=== PATIENT | male | born 1980 | race Caucasian/White ===

== ENCOUNTER → 2017-11-25 | Outpatient (CLI) | payer OTHER ==
[~2017-11-25] MED LIST: ATOR10TA24 PO; AZIT500T47 PO; BUPR-147 PO; CEP500 PO; CYC10 PO; CYCL10TA29 PO; DIPH-741 PO; DULO60CA51 PO; ERYOO OD; FLU20 PO; FLUO-177 PO; FLUO-202 PO; HYDR-3078 PO; HYDR-385 PO; IBU600 PO; IBU800 PO; IBUP-1618 PO; KET10 PO; LOR5/325 PO; LOR7.5/325 PO; MEPE50TA29 PO; METH4TAB57 PO; OMEP40CA48 PO; OXYC-865 PO; PER PO; SUCR1TAB85 PO; TAM4 PO; TRAZ-133 PO; ZOLP-350 PO
--- NOTE | 2017-11-25 09:57 | RADIOLOGY IMAGING REPORT ---
FACILITY: [facility] [place] PATIENT NAME: Martin Suárez : 1980 MR: [id number] V: [id number] EXAM DATE: ORDERING PHYSICIAN: MADALYN HERRMANN TECHNOLOGIST: Location: [facility] [place] Patient: Martin Suárez : 1980 Visit/Account:[id number] Date of Sevice: 11/25/2017 GALLBLADDER HISTORY: Right upper quadrant pain for 2 to 3 years COMPARISON: None. FINDINGS: Gallbladder: Unremarkable; no stones or sludge. Liver: Echotexture the liver is heterogeneous with increased echogenicity which can be seen with fatt y infiltration or other infiltrative process. There are some areas of decreased echogenicity adjacen t to the gallbladder which likely represent areas of focal fatty sparing Common duct: Normal, 1.8 mm diameter. Pancreas: Head and body appear grossly unremarkable. Tail is obscured by bowel gas Right kidney: Unremarkable as imaged measuring 11.2 cm in length Upper abdominal aorta and IVC: Patent. Ascites: None visualized. IMPRESSION: Increased echogenicity of the liver which can be seen with fatty infiltration. Gallbladder appeared unremarkable Report Dictated By: Larissa Turpin MD at 11/25/2017 9:51 AM Report E-Signed By: Larissa Turpin MD at 11/25/2017 9:53 AM WSN:[email or web address]
== END ==
LOC: US 01:49
PROVIDERS: ATTEND Surgery
DX: K76.0 Fatty (change of) liver, not elsewhere classified (principal)
CPT/HCPCS: 76705

== ENCOUNTER → 2017-12-02 | Outpatient (CLI) | payer OTHER ==
[~2017-12-02] MED LIST changes: +SINCALIDE 5 MCG VIAL INJ ONE; +WATER STERILE ONE
--- NOTE | 2017-12-02 17:26 | RADIOLOGY IMAGING REPORT ---
FACILITY: [facility] PATIENT NAME: Martin Suárez : 1980 MR: [id number] V: [id number] EXAM DATE: ORDERING PHYSICIAN: MADALYN HERRMANN TECHNOLOGIST: Location: [facility] Patient: Martin Suárez : 1980 Visit/Account:[id number] Date of Sevice: 12/02/2017 EXAMINATION: Nuclear Medicine HIDA Scan 12/02/2017 1:30 PM Right upper quadrant pain TECHNIQUE: 5.7 mCi Tc 99m Mebrofenin was injected intravenously. A series of anterior gamma camera i mages were obtained of the abdomen. The gallbladder does not fill enough for postcholecystokinin gall bladder ejection evaluation to be performed. COMPARISON STUDIES: Ultrasound 11/25/2017 FINDINGS: FINDINGS: Liver uptake and excretion: normal Time to appearance: Bile ducts: Within 6 minutes. Gallbladder: Faintly by 69 minutes. The gallbladder never filled well. Duodenum: By 7 minutes. Duodenal- gastric reflux / extravasation: There is gastric reflux which begins to be visible faintly within 15 minutes IMPRESSION: 1. Gallbladder filled poorly although there is radiotracer within the gallbladder arguing against com plete cystic duct obstruction. Given the poor filling of the gallbladder, gallbladder ejection fracti on could not be assessed. 2. Gastric reflux of radiotracer. Is bile gastritis of clinical concern? Report Dictated By: Farshad Scott MD at 12/02/2017 5:16 PM Report E-Signed By: Farshad Scott MD at 12/02/2017 5:22 PM WSN:[id number]
== END ==
LOC: NUC 03:13
PROVIDERS: ATTEND Surgery
DX: K21.9 Gastro-esophageal reflux disease without esophagitis (principal)
CPT/HCPCS: 78226; A9537; A4216; J2805

== ENCOUNTER 2017-12-09 00:10 | Day surgery (SDC) | payer OTHER ==
--- NOTE | 2017-12-06 17:08 | HISTORY AND PHYSICAL ---
DATE OF ADMISSION: December 09, 2017 CHIEF COMPLAINT Right upper quadrant pain. HISTORY OF PRESENT ILLNESS This is a 36-year-old male with a history of intermittent epigastric and right upper quadrant pain. It occurs after eating buttery foods. It radiates through to the back. He has associated nausea. No change in bowel habits. No urinary complaints. No fever. Pain seems to be increasing in intensity. He is not on any NSAIDS. He underwent an ultrasound examination which was unremarkable. He underwent a HIDA scan with the intention to do a Kinevac study , but the gallbladder did not take up enough nucleotide to perform this study, suggesting an abnormal gallbladder. PAST SURGICAL HISTORY * Microdiskectomy. * Sphincterotomy. ALLERGIES He has no known allergies. CURRENT MEDICATIONS * Atorvastatin. * Chantix. * Prozac. SOCIAL HISTORY He quit smoking. He does not drink alcohol. FAMILY HISTORY History of gallbladder disease. REVIEW OF SYSTEMS No cardiac, pulmonary, liver or kidney disease, diabetes, hypertension, history of deep venous thrombosis. PHYSICAL EXAMINATION GENERAL: A 37-year-old male in no acute distress. LUNGS: Clear. HEART: Regular rhythm. ABDOMEN: Soft, nontender. No palpable masses. IMPRESSION Biliary dyskinesia. PLAN Laparoscopic cholecystectomy with cholangiogram. We discussed the procedure, complications, recovery time, the possibility this may not relieve his symptoms. He seems to understand and wishes to proceed. CHUCHO
[~2017-12-09] VITALS: Ht 188 cm; Wt 124.3 kg
[~2017-12-09 00:10] MED LIST changes: +ATOR20TA65 PO; -SINCALIDE 5 MCG VIAL INJ ONE; +VARE1TAB3 PO; -WATER STERILE ONE
[2017-12-09 06:12] VITALS: BP 132/86
[2017-12-09 06:19] LABS: PLATELET COUNT, AUTOMATED 277 K/uL (150-450)
[2017-12-09] MEDS ORDERED: IOPAMIDOL 61% 100 ML INFUS BTL 100 ML ONE (06:29)
[2017-12-09] MEDS ORDERED: ROPIVACAINE 0.2% 20 ML VIAL ONE (06:29)
[2017-12-09] MEDS ORDERED: PROPOFOL EMUL(*) 10MG/ML 20 ML 20 ML ONE (07:07)
[2017-12-09] MEDS ORDERED: SUGAMMADEX SOD 200 MG/2 ML SDV ONE (07:07)
[2017-12-09] MEDS ORDERED: LIDOCAINE MPF 1% 5 ML VIAL ONE (07:07)
[2017-12-09] MEDS ORDERED: ROCURONIUM BROM 10 MG/ML 10 ML ONE (07:07)
[2017-12-09] MEDS ORDERED: fentaNYL CITR 250 MCG/5 ML AMP ONE (07:07)
[2017-12-09] MEDS ORDERED: DEXAMETHASONE SOD 4 MG/ML VIAL ONE (07:07)
[2017-12-09] MEDS ORDERED: ONDANSETRON 4 MG/2 ML VIAL ONE (07:07)
--- NOTE | 2017-12-09 07:13 | Post Operative Progress Note ---
Post Operative Progress Note Date: Dec 09, 2017 Time: 08:30 Surgeon: jonel Anesthesia: dr rasmussen Pre-Op Diagnosis: cholecystitis Post-Op Diagnosis: same Procedure(s): lap west with MADALYN Wright MD Dec 09, 2017 07:13
[2017-12-09] MEDS ORDERED: HYDR-4309 PO (07:14)
[2017-12-09] MEDS ORDERED: KET10 PO (07:14)
[2017-12-09] MEDS ORDERED: LABETALOL HCL 100 MG/20ML VIAL ONE (07:59)
--- NOTE | 2017-12-09 08:02 | EKG ---
FACILITY: [facility] PATIENT NAME: JOSÉ MIGUEL RAO : [id number] MR: [id number] V: [id number] EXAM DATE: ORDERING PHYSICIAN: JAMI TAVERAS TECHNOLOGIST: Test Reason : Blood Pressure : / mmHG Vent. Rate : 070 BPM Atrial Rate : 070 BPM P-R Int : 164 ms QRS Dur : 086 ms QT Int : 390 ms P-R-T Axes : 025 043 044 degrees QTc Int : 421 ms Normal sinus rhythm Normal ECG No previous ECGs available Confirmed by SAMEER SOMMERS ([id number]) on 12/10/2017 5:52:50 AM Referred By: Confirmed By:SAMEER SOMMERS
--- NOTE | 2017-12-09 08:32 | Short(Outpt) Discharge Summary ---
Discharge Summary Reason for Hosp/Final Diag: (1) Cholecystitis Hospital Course & Plan: lap west with gram Departure Discharge to: Home Discharge Instructions Home Meds Active Scripts Hydrocodone Bit/Acetaminophen (NORCO 5-325 TABLET) 1 Each Tablet, 1 EACH PO Q4H Y for PAIN, #30 TAB Prov:MADALYN HERRMANN MD 12/09/17 Ketorolac Tromethamine (KETOROLAC TROMETHAMINE) 10 Mg Tab, 10 MG PO Q6H, #20 TAB Prov:MADALYN HERRMANN MD 12/09/17 Reported Medications Varenicline Tartrate (CHANTIX) 1 Each Tab.ds.pk, 1 EACH PO BID 12/06/17 Atorvastatin Calcium (ATORVASTATIN CALCIUM) 20 Mg Tablet, 1 TAB PO QDAY, TAB 12/06/17 Fluoxetine Hcl (FLUOXETINE HCL) 20 Mg Capsule, 80 MG PO QDAY, CAPSULE 06/24/16 Discontinued Reported Medications Atorvastatin Calcium (LIPITOR) 10 Mg Tablet, 1 TAB PO QDAY, TAB 08/14/17 Bupropion Hcl (BUPROPION HCL) 75 Mg Tablet, 100 MG PO BID, #10 TAB 06/24/16 Discontinued Scripts Hydrocodone Bit/Acetaminophen (HYDROCODON-ACETAMINOPHEN 5-325) 1 Each Tablet, 1 EACH PO Q4-6H Y for PAIN, #12 TAB Prov:RITO CASEY [facility]- 09/25/17 Ketorolac Tromethamine (KETOROLAC TROMETHAMINE) 10 Mg Tab, 10 MG PO Q6H, #20 TAB Prov:YARELI BUTLER [facility] 08/14/17 Oxycodone Hcl/Acetaminophen (PERCOCET 5-325 MG TABLET) 1 Each Tablet, 1 EACH PO Q4-6H Y for PAIN, #12 TAB Prov:YARELI BUTLER [facility] 08/14/17 Diet: Regular Activity: As Tolerated Special Instructions: ice to incsion for 48 hours remove bandage and shower tuesday to see me in one week, call [phone] for apt MADALYN HERRMANN MD Dec 09, 2017 08:32
[2017-12-09] MEDS ORDERED: fentaNYL CITR 100 MCG/2 ML AMP ONE ×2 (08:40→08:48)
[2017-12-09] MEDS ORDERED: PROMETHAZINE 25 MG/ML 1 ML AMP ONE (08:42)
[2017-12-09] MEDS ORDERED: MIDAZOLAM 2 MG/2 ML VIAL IVP ONE (08:45)
[2017-12-09] MEDS ORDERED: NORMOSOL R SOLN(*) 1000 ML BAG 1,000 ML IV PRN (08:45)
[2017-12-09] MEDS ORDERED: FAMOTIDINE 20 MG TAB PO ONE (08:45)
[2017-12-09] MEDS ORDERED: cefOXitin/DEX(*) 2GM/50ML PREM 50 ML IVPB ONE (08:45)
[2017-12-09] MEDS ORDERED: LIDOCAINE/SOD BICARB 8.4% SYR ID ONE (08:45)
[2017-12-09] MEDS ORDERED: APAP/HYDROCODONE 325/5 TAB ONE (09:28)
--- NOTE | 2017-12-09 09:58 | RADIOLOGY IMAGING REPORT ---
FACILITY: [facility] PATIENT NAME: Martin Suárez : 1980 MR: [id number] V: [id number] EXAM DATE: ORDERING PHYSICIAN: MADALYN HERRMANN TECHNOLOGIST: Location: [facility] Patient: Martin Suárez : 1980 Visit/Account:[id number] Date of Sevice: 12/09/2017 EXAMINATION: Interoperative Cholangiogram 12/09/2017 6:30 AM HISTORY: CHOLECYSTITIS COMPARISON: Ultrasound [address] CT with hepatobiliary scan 12/02/2017. FLUOROSCOPY TIME: 12 seconds DOSE: DAP 0.04670 mGy/m2 FINDINGS: Intraoperative fluoroscopy was provided. Imaging demonstrates intraoperative cholangiogra m with contrast injection via the cystic duct remnant. Visualized bile ducts are unremarkable in tony earance without focal stricture or irregularity. No visible choledocholithiasis. Free spill into th e duodenum is shown. IMPRESSION: Unremarkable intraoperative cholangiogram. Report Dictated By: Farshad Scott MD at 12/09/2017 9:21 AM Report E-Signed By: Farshad Scott MD at 12/09/2017 9:23 AM WSN:[email or web address]
--- NOTE | 2017-12-09 13:33 | OPERATIVE REPORT 1 ---
EVENT DATE: December 09, 2017 SURGEON: Emory Aiken MD ANESTHESIOLOGIST: Devin Garcia MD ANESTHESIA: General. PREOPERATIVE DIAGNOSES Cholecystitis. POSTOPERATIVE DIAGNOSES Cholecystitis. PROCEDURE Laparoscopic cholecystectomy with intraoperative cholangiogram. DESCRIPTION OF PROCEDURE Patient was placed in the supine position and given general anesthetic. His abdomen was prepped and draped in sterile fashion. Skin was anesthetized with 0.2% ropivacaine. Small incision was made above the umbilicus. Veress needle was inserted. The abdomen was insufflated with CO2. A 5 mm port was placed under direct vision. We then placed two 5 mm in the right subcostal region, a 10 mm in the epigastrium under direct vision. The gallbladder was grasped, raised cephalad. We dissected out the cystic duct, gallbladder junction. Cystic artery was covering this, so this was doubly clipped proximally, once distally and transected. This exposed the cystic duct better. We placed a clip at the cystic duct/gallbladder junction, opened the cystic duct, inserted taut catheter, obtained cholangiograms, which were normal. Clip was removed. Taut catheter was removed. The cystic duct was triply clipped proximally and transected. We then dissected out one other branch of the cystic artery. This was clipped proximally and transected. We then used electrocautery to dissect the gallbladder from the bed of the liver. This dissection went very nicely. We had excellent hemostasis. Gallbladder was placed in an Endo pouch, removed from the field. We inspected for bleeding, none was noted. Ports were removed under direct vision. No bleeding was noted. Skin was closed with interrupted 4 -0 Maxon. Steri-Strips and Airstrip were placed. [facility]
== END 2017-12-09 09:45 | disposition home or self-care (01) ==
LOC: OR 00:10
PROVIDERS: ATTEND Surgery
DX: K81.9 Cholecystitis, unspecified (principal)
CPT/HCPCS: 36415; 47563; 74300; 85025; 88304; 93005; J0694; J1100; J2001; J2250; J2405; J2550; J2704; J2795; J3010; J3490; Q9967